=== PATIENT | male | born 1985 | race Two or more races ===

== ENCOUNTER 2017-04-16 16:23 | Emergency (ER) | payer OTHER ==
[~2017-04-16] VITALS: Ht 180.3 cm; Wt 97.5 kg
[~2017-04-16 16:23] MED LIST: MUCINEX1200 MG/BO PO
== END 2017-04-16 19:30 | disposition home or self-care (01) ==
LOC: ER 16:23
DX: B34.9 Viral infection, unspecified (principal)

== ENCOUNTER 2022-03-30 17:09 | Emergency (ER) | payer OTHER ==
[~2022-03-30] VITALS: Ht 182.9 cm; Wt 108.9 kg
== END 2022-03-30 20:41 | disposition home or self-care (01) ==
LOC: ER 17:09
DX: S29.9XXA Unspecified injury of thorax, initial encounter (principal); V49.9XXA Car occupant (driver) (passenger) injured in unspecified traffic accident, initial encounter; Y93.9 Activity, unspecified; Y92.9 Unspecified place or not applicable; Y99.9 Unspecified external cause status; S59.902A Unspecified injury of left elbow, initial encounter; S89.92XA Unspecified injury of left lower leg, initial encounter; S39.91XA Unspecified injury of abdomen, initial encounter

== ENCOUNTER 2023-03-04 19:24 | Emergency (ER) | payer OTHER ==
[~2023-03-04] VITALS: Ht 182.9 cm; Wt 102.1 kg
[2023-03-04 20:50] LABS: HEMATOCRIT 41.6 % (39.0-48.0); HEMOGLOBIN 14.1 g/dL (13-16.00); MEAN CELL VOLUME 86.3 fL (80.0-100.00); MEAN CORPUSCULAR HEMOGLOBIN 29.2 pg (27.00-32.0); MEAN CORPUSCULAR HGB CONC 33.9 g/dl (32.0-36.0); PLATELET COUNT 186 K/uL (150-450); RED BLOOD COUNT 4.82 M/uL (4.00-6.00); RED CELL DISTRIBUTION WIDTH 13.5 % (11.5-14.5)
== END 2023-03-04 20:35 | disposition home or self-care (01) ==
LOC: ER 19:24
DX: J10.1 Influenza due to other identified influenza virus with other respiratory manifestations (principal); Z20.822 Contact with and (suspected) exposure to COVID-19

== ENCOUNTER 2025-02-27 17:35 | Emergency (ER) | payer OTHER ==
[~2025-02-27] VITALS: Ht 182.9 cm; Wt 108.4 kg
[2025-02-27] MEDS ORDERED: ZOLOFT50 MG PO (17:40)
[2025-02-27] MEDS ORDERED: ORPHENADRINE CITRATE 30 MG/ML AMPUL IM ONE (18:00)
[2025-02-27] MEDS ORDERED: KETOROLAC TROMETHAMINE 30 MG VIAL IM ONE (18:00)
[2025-02-27] MEDS ORDERED: DEXAMETHASONE SODIUM PHOSPHATE 4 MG/ML VIAL IM ONE (18:00)
[2025-02-27] MEDS ORDERED: DEXAMETHASONE SODIUM PHOSPHATE 4 MG/ML VIAL ONE (18:11)
[2025-02-27] MEDS ORDERED: KETOROLAC TROMETHAMINE 60 MG VIAL IM ONE (18:11)
[2025-02-27] MEDS ORDERED: ORPHENADRINE CITRATE 30 MG/ML AMPUL ONE (18:11)
[2025-02-27] MEDS ORDERED: DICLOFENAC SODI50 MG PO (20:48)
[2025-02-27] MEDS ORDERED: NORFLEX100MG PO (20:48)
== END 2025-02-27 21:06 ==
LOC: ER 17:35
DX: S30.0XXA Contusion of lower back and pelvis, initial encounter (principal); S40.012A Contusion of left shoulder, initial encounter; S70.01XA Contusion of right hip, initial encounter; W18.39XA Other fall on same level, initial encounter; Y93.89 Activity, other specified; Y92.828 Other wilderness area as the place of occurrence of the external cause; Y99.9 Unspecified external cause status